=== PATIENT | female | born 1975 | race Two or more races ===

== ENCOUNTER 2017-07-04 09:07 | Emergency (ER) | payer MEDICAID ==
[~2017-07-04] VITALS: Ht 175.3 cm; Wt 78.0 kg
[2017-07-04 09:14] VITALS: BP 114/75
[2017-07-04] MEDS ORDERED: CYCL5TAB PO (09:18)
[2017-07-04] MEDS ORDERED: KETOROLAC 60MG/2ML VIAL IM ONE (11:15)
== END 2017-07-04 11:31 | disposition home or self-care (01) ==
LOC: ER 09:24
DX: M54.42 Lumbago with sciatica, left side (principal); M54.41 Lumbago with sciatica, right side
CPT/HCPCS: 81025; 96372; 99283; J1885

== ENCOUNTER 2017-10-05 22:25 | Emergency (ER) | payer MEDICAID ==
[~2017-10-05] VITALS: Ht 175.3 cm; Wt 77.0 kg
[~2017-10-05 22:25] MED LIST: CYCL5TAB PO
[2017-10-06 00:53] VITALS: BP 123/73
[2017-10-06] MEDS ORDERED: ACETAMINOPHEN 325MG TABLET PO ONE (01:15)
[2017-10-06] MEDS ORDERED: VISCOUS LIDOCAINE 2% 15 ML UDC PO STA (01:48)
== END 2017-10-06 02:06 | disposition home or self-care (01) ==
LOC: ER 22:25
DX: R07.0 Pain in throat (principal); H92.02 Otalgia, left ear; K21.9 Gastro-esophageal reflux disease without esophagitis
CPT/HCPCS: 87070; 87430; 99284